=== PATIENT | female | born 1960 | race Caucasian/White ===

== ENCOUNTER → 2017-09-23 | Outpatient (CLI) | payer BC ==
[2016-03-06 17:11] VITALS: BP 137/69
--- NOTE | 2017-09-24 09:48 | MG ---
HISTORY: SCREENING Comparison: None FINDINGS: Bilateral CC and MLO projections of the right and left breast were obtained. Heterogeneously dense f ibroglandular tissue is seen to be present. No suspicious architectural distortion, mass or clustere d microcalcifications can be observed to suggest malignancy. No skin thickening or nipple retraction is appreciated. No pathological lymphadenopathy can be identified. Benign-appearing calcifications are noted within the right and left breast. IMPRESSION: NO RADIOGRAPHIC EVIDENCE OF MALIGNANCY. ACR CATEGORY 2 - benign findings. FOLLOW-UP EXAM 1 YEAR. Diagnostic CAD was utilized and reviewed. * 0 (ZERO) - ASSESSMENT INCOMPLETE; ADDITIONAL IMAGING IS NEEDED. * / (ONE) - NEGATIVE. * 2/II (TWO) - BENIGN FINDINGS. * 3/III (THREE) - PROBABLY BENIGN FINDING; SHORT INTERVAL FOLLOW-UP SUGGESTED. * 4/IV (FOUR) - SUSPICIOUS ABNORMALITY; BIOPSY SHOULD BE CONSIDERED. * 5/V - HIGHLY SUSPICIOUS OF MALIGNANCY; BIOPSY SHOULD BE PERFORMED. A NEGATIVE X-RAY REPORT SHOULD NOT DELAY BIOPSY IF A DOMINANT OR CLINICALLY SUSPICIOUS MASS IS PRESENT; 4 TO 8 PERCENT OF CANCERS ARE NOT IDENTIFIED BY X-RAY. A NEGA TIVE REPORT MAY REINFORCE THE CLINICAL IMPRESSION. ADENOSIS AND DENSE BREASTS MAY OBSCURE AN UNDERLY ING NEOPLASM. Reported By:
== END ==
LOC: RAD 09:20
PROVIDERS: ATTEND Obstetrics & Gynecology
DX: Z12.31 Encounter for screening mammogram for malignant neoplasm of breast (principal)
CPT/HCPCS: 77067

== ENCOUNTER 2019-11-10 12:49 | Observation (INO) ==
[2019-11-10 14:48] VITALS: BMI 34.7
[2019-11-10] MEDS ORDERED: TUSSIONEX PENNKINETIC SUSP PO PRN (14:51)
[2019-11-10] MEDS ORDERED: NS 1/2 1000 ML IV 1,000 ML IV ONE (15:05)
[2019-11-10 15:29] LABS: BASOPHILS % (AUTO) 0.8 % (0.2-1.0); EOSINOPHILS # (AUTO) 0.1 x10^3/uL (0.0-0.2); EOSINOPHILS % (AUTO) 1.4 % (0.9-2.9); HEMATOCRIT 43.6 % (36.0-47.0); HEMOGLOBIN 14.7 g/dL (12.0-16.0); LYMPHOCYTES # (AUTO) 1.5 X10^3/uL (1.3-2.9); LYMPHOCYTES % (AUTO) 32.8 % (21.0-51.0); MEAN CORPUSCULAR HEMOGLOBIN 30.1 pg (27.0-34.0); MEAN CORPUSCULAR HGB CONC 33.7 g/dL (33.0-35.0); MEAN CORPUSCULAR VOLUME 89.1 fL (80.0-100.0); MEAN PLATELET VOLUME 7.5 fL (7.4-11.0); MONOCYTES # (AUTO) 0.4 x10^3/uL (0.3-0.8); MONOCYTES % (AUTO) 8.9 % (0.0-13.0); NEUTROPHILS # (AUTO) 2.6 x10^3/uL (2.2-4.8); NEUTROPHILS % (AUTO) 56.1 % (42.0-75.0); PLATELET COUNT 214 X10^3/uL (150.0-450.0); RED CELL DISTRIBUTION WIDTH 13.1 % (11.6-16.5); WHITE BLOOD COUNT 4.6 X10^3/uL (3.6-10.0)
[2019-11-10 15:39] LABS: ALANINE AMINOTRANSFERASE 22 Units/L (12-78); ALBUMIN 3.4 g/dL (3.4-5.0); ALKALINE PHOSPHATASE 82 Units/L (46-116); ASPARTATE AMINO TRANSFERASE 30 Units/L (15-37); BLOOD UREA NITROGEN 12 mg/dL (7-18); CARBON DIOXIDE 28.2 mmol/L (21-32); CHLORIDE 101 mmol/L (98-107); CREATININE 0.99 mg/dL (0.55-1.02); SODIUM 139 mmol/L (136-145); TOTAL PROTEIN 7.5 g/dL (6.4-8.2); eGFR NON BLACK RACES > 60 (>60)
[2019-11-10] MEDS: ROBITUSSIN DM PO SCH ×3 (15:39→20:30)
[2019-11-10] MEDS: VSL#3 PO SCH (15:39)
[2019-11-10] MEDS: LEVAQUIN PREMIX IV 750 MG 750 MG/150 ML BAG IV SCH (15:39)
[2019-11-10] MEDS ORDERED: MAGNESIUM SULFATE 1 GRAM/100 mL PREMIX 1 GM/100 ML BAG IV PRN (15:40)
[2019-11-10] MEDS ORDERED: KLOR-CON PO PRN (15:40)
[2019-11-10] MEDS ORDERED: MICRO K EXTEN CAP 10 MEQ PO PRN (15:40)
[2019-11-10] MEDS ORDERED: POTASSIUM CHL 60 MEQ/NS 0.45% 500 ML IV PRN (15:40)
[2019-11-10] MEDS ORDERED: POTASSIUM CHL 40 MEQ/NS 0.45% 500 ML IV PRN (15:40)
[2019-11-10] MEDS ORDERED: K-RIDER 10 MEQ/NS 100 ML 10 MEQ/100 ML BAG IV PRN (15:40)
[2019-11-10] MEDS: NS 1/2 1000 ML IV 1,000 ML IV SCH (15:40)
[2019-11-10] MEDS: DUONEB 0.5 MG/3 MG (3 mL) NEB SCH ×2 (16:30→21:15)
[2019-11-10] MEDS ORDERED: DUONEB 0.5 MG/3 MG (3 mL) NEB SCH (17:00)
--- NOTE | 2019-11-10 17:01 | RAD ---
HISTORYCOUGH/FEVER X 3 DAYS, FLU VS PNASTUDYCHEST, PA/LAT ADULTCOMPARISONFINDINGSThe trachea is midline. The cardiac silhouette is unremarkable . The lungs are clear without focal infiltrate or effusion. The bony thorax is unremarkable.IMPRESSIONNo acute cardiopulmonary disease.Electronically signed by: SAMEER HOLLOWAY (Nov 10, 2019 16:59:51)
[2019-11-10] MEDS: SOLU-Medrol 40 MG VIAL IVP SCH ×2 (17:11→21:47)
[2019-11-10] MEDS: TYLENOL 325 MG TAB PO PRN (17:12)
[2019-11-10] MEDS: K-DUR TAB 20 MEQ PO PRN (17:14)
[2019-11-10] MEDS: FORTAZ or TAZICEF VIAL INJ 1 G in NS 100 ML IV + SPIKE MINIBAG* 100 ML IV SCH ×2 (17:15→22:15)
[2019-11-11] MEDS: DUONEB 0.5 MG/3 MG (3 mL) NEB SCH ×2 (00:50→05:25)
[2019-11-11] MEDS ORDERED: NS 1/2 1000 ML IV 1,000 ML IV ONE (05:19)
[2019-11-11 06:24] LABS: BASOPHILS % (AUTO) 0.1 % (0.2-1.0); HEMOGLOBIN 13.8 g/dL (12.0-16.0); LYMPHOCYTES # (AUTO) 0.7 X10^3/uL (1.3-2.9); LYMPHOCYTES % (AUTO) 24.1 % (21.0-51.0); MEAN CORPUSCULAR HEMOGLOBIN 30.3 pg (27.0-34.0); MEAN CORPUSCULAR HGB CONC 34.4 g/dL (33.0-35.0); MEAN PLATELET VOLUME 7.5 fL (7.4-11.0); MONOCYTES # (AUTO) 0.1 x10^3/uL (0.3-0.8); MONOCYTES % (AUTO) 4.1 % (0.0-13.0); NEUTROPHILS % (AUTO) 71.7 % (42.0-75.0); PLATELET COUNT 224 X10^3/uL (150.0-450.0); RED BLOOD COUNT 4.55 X10^6/uL (3.5-5.4); WHITE BLOOD COUNT 2.8 X10^3/uL (3.6-10.0)
[2019-11-11] MEDS: SOLU-Medrol 40 MG VIAL IVP SCH ×3 (06:28→21:00)
[2019-11-11] MEDS: FORTAZ or TAZICEF VIAL INJ 1 G in NS 100 ML IV + SPIKE MINIBAG* 100 ML IV SCH ×3 (06:28→21:00)
[2019-11-11] MEDS: NS 1/2 1000 ML IV 1,000 ML IV SCH ×2 (06:29→20:57)
--- NOTE | 2019-11-11 06:38 | RAD ---
HISTORYSOBSTUDYPortable AP chestCOMPARISONMarch 2019FINDINGSThe lungs remain clear. There is mild cephalization of pulmonary venous flow. The heart size is prominent. The mediastinum is unremarkable. No bony abnormality is demonstrated.IMPRESSIONMinimal vascular congestionElectronically signed by: ZENIA SALINAS (Nov 11, 2019 06:37:03)
[2019-11-11 06:44] LABS: ALANINE AMINOTRANSFERASE 23 Units/L (12-78); ALBUMIN 3.2 g/dL (3.4-5.0); ALKALINE PHOSPHATASE 71 Units/L (46-116); ASPARTATE AMINO TRANSFERASE 25 Units/L (15-37); BLOOD UREA NITROGEN 8 mg/dL (7-18); CALCIUM 8.7 mg/dL (8.5-10.1); CARBON DIOXIDE 20.6 mmol/L (21-32); CHLORIDE 99 mmol/L (98-107); COR CA(FOR HYPOALB) 9.3 mg/dL (8.5-10.1); COR NA(FOR HYPERGLY) 138 mmol/L (136-145); CREATININE 1.03 mg/dL (0.55-1.02); SODIUM 136 mmol/L (136-145); TOTAL PROTEIN 7.3 g/dL (6.4-8.2); eGFR NON BLACK RACES 58 (>60)
[2019-11-11] MEDS: LEVAQUIN PREMIX IV 750 MG 750 MG/150 ML BAG IV SCH (08:57)
[2019-11-11] MEDS: LOVENOX INJ 40 MG SYR SC SCH (08:57)
[2019-11-11] MEDS: ROBITUSSIN DM PO SCH ×4 (08:58→21:00)
[2019-11-11] MEDS: TAMIFLU PO SCH ×2 (08:58→21:00)
[2019-11-11] MEDS: VSL#3 PO SCH (08:58)
[2019-11-11] MEDS: POTASSIUM CHLORIDE LIQ 20 MEQ UDC PO PRN (09:11)
[2019-11-11] MEDS: K-DUR TAB 20 MEQ PO PRN (14:12)
[2019-11-11] MEDS: XOPENEX 1.25 MG/3 ML NEBULE NEB SCH ×2 (15:00→20:20)
--- NOTE | 2019-11-11 17:30 | DR.UPDATE ---
H&P Update History and Physical Update: History and Physical reviewed and patient examined. Changes noted: Yes with the following: WAS SEEN IN THE OFFICE FOR COMPLAINT OF BODY ACHES, FEVER, DIARRHEA, COUGH, AND SHORTNESS OF BREATH. COUGH AND SHORTNESS OF BREATH STARTED TWO WEEKS PRIOR. BODY ACHES AND FEVER STARTED FOUR DAYS PRIOR. SHE HAS TAKEN CEFDINIR 300MG PO BID X 10 DAYS AND A MEDROL DOSEPACK WITHOUT IMPROVEMENT IN SYMPTOMS. SHE ALSO STARTED TAKING TAMIFLU 75MG PO BID TWO DAYS PRIOR TO ARRIVAL. SHE WAS ADMITTED FOR FURTHER EVALUATION AND TREATMENT OF BRONCHOPNEUMONIA AND INFLUENZA. ON ADMISSION, VITALS WERE 98.9-93-20-98%-159/76. LABS WERE OBTAINED. ABNORMAL LAB VALUES INCLUDE THE FOLLOWING: POTASSIUM 3.1, INFLUENZA A POSITIVE. BLOOD AND SPUTUM CULTURES WERE SET UP. A CHEST XRAY WAS OBTAINED AND REVEALED: NO ACUTE CARDIOPULMONARY DISEASE. SHE WAS STARTED ON IV FORTAZ, IV LEVAQUIN, RESPIRATORY TX, THE POTASSIUM AND MAGNESIUM PROTOCOLS, TAMIFLU 75MG PO DAILY, 1/2NS AT 75 ML/HR, AND HOME MEDICATIONS WERE RESUMED. WE WILL CONTINUE WITH CURRENT PLAN OF CARE TODAY. OTHERWISE, WE WILL FOLLOW UP WITH AM LABS AND CHEST XRAY AND CONTINUE TO MONITOR. Prescription drug monitoring program results: PDMP reviewed and no concerns identified H&P Reviewed: Yes Patient was examined?: Yes
[2019-11-11] MEDS: AMBIEN PO PRN (22:57)
[2019-11-12] MEDS ORDERED: NS 1/2 1000 ML IV 1,000 ML IV ONE ×2 (03:22→20:01)
[2019-11-12] MEDS: NS 1/2 1000 ML IV 1,000 ML IV SCH ×3 (03:26→22:16)
[2019-11-12] MEDS: FORTAZ or TAZICEF VIAL INJ 1 G in NS 100 ML IV + SPIKE MINIBAG* 100 ML IV SCH ×3 (05:37→21:24)
[2019-11-12] MEDS: SOLU-Medrol 40 MG VIAL IVP SCH ×3 (05:38→21:23)
[2019-11-12] MEDS: XOPENEX 1.25 MG/3 ML NEBULE NEB SCH ×3 (05:40→20:35)
--- NOTE | 2019-11-12 06:10 | RAD ---
HISTORYSOB pneumoniaSTUDYAP [id number]/2020FINDINGSContinued normal heart size with essentially clear lungs and pleural spaces.IMPRESSIONNo interval change or acute chest abnormality demonstrated.Electronically signed by : LAURI GOLDBERG (Nov 12, 2019 06:09:51)
[2019-11-12 06:17] LABS: BASOPHILS % (AUTO) 0.1 % (0.2-1.0); HEMATOCRIT 35.7 % (36.0-47.0); HEMOGLOBIN 12.2 g/dL (12.0-16.0); LYMPHOCYTES % (AUTO) 10.1 % (21.0-51.0); MEAN CORPUSCULAR HEMOGLOBIN 30.8 pg (27.0-34.0); MEAN CORPUSCULAR HGB CONC 34.2 g/dL (33.0-35.0); MEAN CORPUSCULAR VOLUME 89.9 fL (80.0-100.0); MEAN PLATELET VOLUME 8.1 fL (7.4-11.0); MONOCYTES # (AUTO) 0.2 x10^3/uL (0.3-0.8); MONOCYTES % (AUTO) 2.2 % (0.0-13.0); NEUTROPHILS # (AUTO) 8.5 x10^3/uL (2.2-4.8); NEUTROPHILS % (AUTO) 87.6 % (42.0-75.0); PLATELET COUNT 222 X10^3/uL (150.0-450.0); RED BLOOD COUNT 3.97 X10^6/uL (3.5-5.4); WHITE BLOOD COUNT 9.7 X10^3/uL (3.6-10.0)
[2019-11-12 06:38] LABS: ALANINE AMINOTRANSFERASE 23 Units/L (12-78); ALBUMIN 2.8 g/dL (3.4-5.0); ALKALINE PHOSPHATASE 55 Units/L (46-116); ASPARTATE AMINO TRANSFERASE 24 Units/L (15-37); BLOOD UREA NITROGEN 8 mg/dL (7-18); CALCIUM 8.8 mg/dL (8.5-10.1); CARBON DIOXIDE 26.3 mmol/L (21-32); CHLORIDE 103 mmol/L (98-107); COR CA(FOR HYPOALB) 9.8 mg/dL (8.5-10.1); COR NA(FOR HYPERGLY) 141 mmol/L (136-145); CREATININE 0.87 mg/dL (0.55-1.02); SODIUM 139 mmol/L (136-145); TOTAL PROTEIN 6.1 g/dL (6.4-8.2); eGFR NON BLACK RACES > 60 (>60)
[2019-11-12] MEDS: TAMIFLU PO SCH ×2 (09:39→21:24)
[2019-11-12] MEDS: ROBITUSSIN DM PO SCH ×4 (09:39→21:23)
[2019-11-12] MEDS: LEVAQUIN PREMIX IV 750 MG 750 MG/150 ML BAG IV SCH (09:39)
[2019-11-12] MEDS: LOVENOX INJ 40 MG SYR SC SCH (09:39)
[2019-11-12] MEDS: VSL#3 PO SCH (09:40)
--- NOTE | 2019-11-12 11:12 | PCM.PROG ---
Progress Note Progress Note for Day of Date of Exam: 11/12/19 Subjective Subjective: Patient seen at bedside, no acute events overnight. She continues to feel congested and SOB. She states she continues to have dry coughing spells. She was admitted for bronchopneumonia and flu. She is currently on Fortaz, Levaquin and Tamiflu. She is also receiving solumedrol and duonebs. She denies fever or chills, denies N/V/D or abdominal pain. Her blood sugars were noted to be elevated, patient reports no hx of diabetes but she states she has been feeling tired with increased urination and thirst. Will check A1C. Continue antibiotics, add pulmicort BID. Follow cultures. Past Medical Family Social History Past Med/Fam/Surg Hx: No changes since H&P Allergies: Allergies No Known Drug Allergies Allergy (Verified 11/10/19 14:16) Review of Systems ROS: No change since H&P Vital Signs and I&O's Vital Signs: Temperature 98.4 F Pulse Rate [Right Brachial] 104 Pulse Rate 86 Respiratory Rate 18 Blood Pressure [Left Arm] 108/54 Blood Pressure [Right Arm] 135/73 Blood Pressure 134/64 O2 Sat by Pulse Oximetry 96 Intake and Output: Intake & Output 11/09/19 11/10/19 11/11/19 11/12/19 23:59 23:59 23:59 23:59 Intake Total 1730 / 1730 2430 / 2430 50 / 50 Output Total Balance 1729 / 1729 2430 / 2430 50 / 50 Physical Exam Oriented: Normal Eyes: Normal Nose: Normal Respiratory: Wheezes and Rhonchi Cardiovascular: Normal Auscultation: Bowel Sounds: Normal Palpation: Normal Tenderness: Normal Skin: Normal Musculoskeletal: Normal Psychiatric: Normal Mood Description: Calm and Angry Speech Pattern: Clear and Appropriate Laboratory and Diagnostics Result Diagrams: 11/12/19 05:05 11/12/19 05:05 Labs: 11/10/19 15:15 Blood Blood Culture - Preliminary 11/10/19 15:09 Blood Blood Culture - Preliminary 11/10/19 14:20 Sputum - Expectorated Sputum Sputum Culture - Final 11/10/19 14:20 Sputum - Expectorated Sputum - Final Laboratory WBC 9.7 X10^3/uL (3.6-10.0) 11/12/19 05:05 RBC 3.97 X10^6/uL (3.5-5.4) 11/12/19 05:05 Hgb 12.2 g/dL (12.0-16.0) 11/12/19 05:05 Hct 35.7 % (36.0-47.0) L 11/12/19 05:05 MCV 89.9 fL (80.0-100.0) 11/12/19 05:05 MCH 30.8 pg (27.0-34.0) 11/12/19 05:05 MCHC 34.2 g/dL (33.0-35.0) 11/12/19 05:05 RDW 13.0 % (11.6-16.5) 11/12/19 05:05 Plt Count 222 X10^3/uL (150.0-450.0) 11/12/19 05:05 MPV 8.1 fL (7.4-11.0) 11/12/19 05:05 Neut % (Auto) 87.6 % (42.0-75.0) H 11/12/19 05:05 Lymph % (Auto) 10.1 % (21.0-51.0) L 11/12/19 05:05 [place] % (Auto) 2.2 % (0.0-13.0) 11/12/19 05:05 Eos % (Auto) 0.0 % (0.9-2.9) L 11/12/19 05:05 Baso % (Auto) 0.1 % (0.2-1.0) L 11/12/19 05:05 Neut # (Auto) 8.5 x10^3/uL (2.2-4.8) H 11/12/19 05:05 Lymph # (Auto) 1.0 X10^3/uL (1.3-2.9) L 11/12/19 05:05 [place] # (Auto) 0.2 x10^3/uL (0.3-0.8) L 11/12/19 05:05 Eos # (Auto) 0.0 x10^3/uL (0.0-0.2) 11/12/19 05:05 Baso # (Auto) 0.0 X10^3/uL (0.0-0.1) 11/12/19 05:05 Absolute Nucleated RBC 0.0 /100WBC 11/12/19 05:05 Sodium 139 mmol/L (136-145) 11/12/19 05:05 Corrected Sodium 141 mmol/L (136-145) 11/12/19 05:05 Potassium 3.4 mmol/L (3.5-5.1) L 11/12/19 05:05 Chloride 103 mmol/L (98-107) 11/12/19 05:05 Carbon Dioxide 26.3 mmol/L (21-32) 11/12/19 05:05 BUN 8 mg/dL (7-18) 11/12/19 05:05 Creatinine 0.87 mg/dL (0.55-1.02) 11/12/19 05:05 Est GFR (MDRD) Af Amer > 60 (>60) 11/12/19 05:05 Est GFR (MDRD) Non-Af > 60 (>60) 11/12/19 05:05 Glucose 190 mg/dL (65-99) H 11/12/19 05:05 Hemoglobin A1c 5.6 % 11/12/19 05:05 Calcium 8.8 mg/dL (8.5-10.1) 11/12/19 05:05 Corrected Calcium 9.8 mg/dL (8.5-10.1) 11/12/19 05:05 Magnesium 2.1 mg/dL (1.7-2.9) 11/12/19 05:05 Total Bilirubin 0.30 mg/dL (0.2-1.0) 11/12/19 05:05 AST 24 Units/L (15-37) 11/12/19 05:05 ALT 23 Units/L (12-78) 11/12/19 05:05 Alkaline Phosphatase 55 Units/L (46-116) 11/12/19 05:05 Total Protein 6.1 g/dL (6.4-8.2) L 11/12/19 05:05 Albumin 2.8 g/dL (3.4-5.0) L 11/12/19 05:05 Globulin 3.3 g/dL (2.5-4.5) 11/12/19 05:05 Albumin/Globulin Ratio 0.8 Ratio (1.1-2.1) L 11/12/19 05:05 Influenza Type A (PCR) Positive (NEGATIVE) A 11/10/19 16:00 Influenza Type B (PCR) Negative (NEGATIVE) 11/10/19 16:00 Plan (1) Essential hypertension: Status: Chronic (2) GERD (gastroesophageal reflux disease): Status: Chronic Qualifiers: Esophagitis presence: esophagitis presence not specified Qualified Code(s): K21.9 - Gastro-esophageal reflux disease without esophagitis (3) Bronchopneumonia: Status: Acute (4) Influenza: Status: Acute (5) Hypokalemia: Status: Acute
[2019-11-12] MEDS ORDERED: PEPCID 20 MG IV PREMIX* 20 MG/50 ML BAG IV ONE (11:26)
[2019-11-12] MEDS: PEPCID 20 MG IV PREMIX* 20 MG/50 ML BAG IV SCH ×2 (11:54→21:29)
[2019-11-12] MEDS: PULMICORT NEB TX 0.5 MG NEB SCH ×2 (14:08→20:35)
[2019-11-12] MEDS: POTASSIUM CHLORIDE LIQ 20 MEQ UDC PO PRN (17:10)
[2019-11-12] MEDS: AMBIEN PO PRN (21:24)
[2019-11-13] MEDS: SOLU-Medrol 40 MG VIAL IVP SCH ×2 (05:06→14:34)
[2019-11-13] MEDS: FORTAZ or TAZICEF VIAL INJ 1 G in NS 100 ML IV + SPIKE MINIBAG* 100 ML IV SCH ×3 (05:06→21:11)
[2019-11-13] MEDS: XOPENEX 1.25 MG/3 ML NEBULE NEB SCH ×3 (05:45→20:30)
[2019-11-13 06:17] LABS: BASOPHILS % (AUTO) 0.1 % (0.2-1.0); HEMATOCRIT 33.5 % (36.0-47.0); HEMOGLOBIN 11.7 g/dL (12.0-16.0); LYMPHOCYTES % (AUTO) 10.9 % (21.0-51.0); MEAN CORPUSCULAR HEMOGLOBIN 30.8 pg (27.0-34.0); MEAN CORPUSCULAR HGB CONC 34.9 g/dL (33.0-35.0); MEAN CORPUSCULAR VOLUME 88.4 fL (80.0-100.0); MEAN PLATELET VOLUME 7.8 fL (7.4-11.0); MONOCYTES # (AUTO) 0.2 x10^3/uL (0.3-0.8); MONOCYTES % (AUTO) 2.4 % (0.0-13.0); NEUTROPHILS # (AUTO) 8.4 x10^3/uL (2.2-4.8); NEUTROPHILS % (AUTO) 86.6 % (42.0-75.0); PLATELET COUNT 197 X10^3/uL (150.0-450.0); RED BLOOD COUNT 3.79 X10^6/uL (3.5-5.4); RED CELL DISTRIBUTION WIDTH 13.5 % (11.6-16.5); WHITE BLOOD COUNT 9.7 X10^3/uL (3.6-10.0)
[2019-11-13 06:28] LABS: ALANINE AMINOTRANSFERASE 21 Units/L (12-78); ALBUMIN 2.7 g/dL (3.4-5.0); ALKALINE PHOSPHATASE 47 Units/L (46-116); ASPARTATE AMINO TRANSFERASE 22 Units/L (15-37); BLOOD UREA NITROGEN 7 mg/dL (7-18); CALCIUM 8.6 mg/dL (8.5-10.1); CARBON DIOXIDE 28.6 mmol/L (21-32); CHLORIDE 106 mmol/L (98-107); COR CA(FOR HYPOALB) 9.6 mg/dL (8.5-10.1); COR NA(FOR HYPERGLY) 143 mmol/L (136-145); CREATININE 0.74 mg/dL (0.55-1.02); SODIUM 141 mmol/L (136-145); TOTAL PROTEIN 5.9 g/dL (6.4-8.2); eGFR NON BLACK RACES > 60 (>60)
--- NOTE | 2019-11-13 06:54 | RAD ---
HISTORYSOBSTUDYCHEST, 1 [id number]/07/2020FINDINGSThe trachea is midline. The cardiac silhouette is unremarkable . The lungs are clear without focal infiltrate or effusion. The bony thorax is unremarkable.[ ]IMPRESSIONNo acute cardiopulmonary abnormality or change from prior exam.Electronically signed by: AYANA DOUGLASS (Nov 13, 2019 06:53:34)
[2019-11-13] MEDS: PULMICORT NEB TX 0.5 MG NEB SCH ×2 (08:46→20:30)
[2019-11-13] MEDS: LEVAQUIN PREMIX IV 750 MG 750 MG/150 ML BAG IV SCH (09:47)
[2019-11-13] MEDS: PEPCID 20 MG IV PREMIX* 20 MG/50 ML BAG IV SCH ×2 (09:48→20:17)
[2019-11-13] MEDS: TAMIFLU PO SCH ×2 (09:52→20:19)
[2019-11-13] MEDS: LOVENOX INJ 40 MG SYR SC SCH (09:52)
[2019-11-13] MEDS: ROBITUSSIN DM PO SCH ×4 (09:52→20:19)
[2019-11-13] MEDS: VSL#3 PO SCH (09:53)
--- NOTE | 2019-11-13 11:59 | PCM.PROG ---
Progress Note Progress Note for Day of Date of Exam: 11/13/19 Subjective Subjective: Patient seen at bedside, no acute events overnight. She states her cough and breathing is slightly better. She has been ambulated to the bathroom. She was admitted for bronchopneumonia and flu. She is currently on Fortaz, Levaquin and Tamiflu. She is also receiving solumedrol and duonebs. She denies fever or chills, denies N/V/D or abdominal pain. CXR negative for acute process. Continue antibiotics, duonebs and pulmicort BID. Follow cultures. Past Medical Family Social History Past Med/Fam/Surg Hx: No changes since H&P Allergies: Allergies No Known Drug Allergies Allergy (Verified 11/10/19 14:16) Review of Systems ROS: No change since H&P Vital Signs and I&O's Vital Signs: Temperature 98.1 F Pulse Rate [Right Brachial] 90 Pulse Rate 101 Respiratory Rate 20 Blood Pressure [Left Arm] 135/66 Blood Pressure [Right Arm] 135/73 Blood Pressure 134/64 O2 Sat by Pulse Oximetry 96 Intake and Output: Intake & Output 11/10/19 11/11/19 11/12/19 11/14/19 23:59 23:59 23:59 00:59 Intake Total 1730 / 1730 2430 / 2430 2430 / 2430 960 / 960 Output Total Balance 1729 / 1729 2430 / 2430 2430 / 2430 960 / 960 Physical Exam Oriented: Normal Eyes: Normal Nose: Normal Respiratory: Wheezes and Rhonchi Cardiovascular: Normal Auscultation: Bowel Sounds: Normal Tenderness: Normal Skin: Normal Musculoskeletal: Normal Psychiatric: Normal Mood Description: Calm and Angry Speech Pattern: Clear and Appropriate Laboratory and Diagnostics Result Diagrams: 11/13/19 05:22 11/13/19 05:22 Labs: 11/10/19 15:15 Blood Blood Culture - Preliminary 11/10/19 15:09 Blood Blood Culture - Preliminary 11/10/19 14:20 Sputum - Expectorated Sputum Sputum Culture - Final 11/10/19 14:20 Sputum - Expectorated Sputum - Final Laboratory WBC 9.7 X10^3/uL (3.6-10.0) 11/13/19 05:22 RBC 3.79 X10^6/uL (3.5-5.4) 11/13/19 05:22 Hgb 11.7 g/dL (12.0-16.0) L 11/13/19 05:22 Hct 33.5 % (36.0-47.0) L 11/13/19 05:22 MCV 88.4 fL (80.0-100.0) 11/13/19 05:22 MCH 30.8 pg (27.0-34.0) 11/13/19 05:22 MCHC 34.9 g/dL (33.0-35.0) 11/13/19 05:22 RDW 13.5 % (11.6-16.5) 11/13/19 05:22 Plt Count 197 X10^3/uL (150.0-450.0) 11/13/19 05:22 MPV 7.8 fL (7.4-11.0) 11/13/19 05:22 Neut % (Auto) 86.6 % (42.0-75.0) H 11/13/19 05:22 Lymph % (Auto) 10.9 % (21.0-51.0) L 11/13/19 05:22 [place] % (Auto) 2.4 % (0.0-13.0) 11/13/19 05:22 Eos % (Auto) 0.0 % (0.9-2.9) L 11/13/19 05:22 Baso % (Auto) 0.1 % (0.2-1.0) L 11/13/19 05:22 Neut # (Auto) 8.4 x10^3/uL (2.2-4.8) H 11/13/19 05:22 Lymph # (Auto) 1.0 X10^3/uL (1.3-2.9) L 11/13/19 05:22 [place] # (Auto) 0.2 x10^3/uL (0.3-0.8) L 11/13/19 05:22 Eos # (Auto) 0.0 x10^3/uL (0.0-0.2) 11/13/19 05:22 Baso # (Auto) 0.0 X10^3/uL (0.0-0.1) 11/13/19 05:22 Absolute Nucleated RBC 0.0 /100WBC 11/13/19 05:22 Sodium 141 mmol/L (136-145) 11/13/19 05:22 Corrected Sodium 143 mmol/L (136-145) 11/13/19 05:22 Potassium 3.7 mmol/L (3.5-5.1) 11/13/19 05:22 Chloride 106 mmol/L (98-107) 11/13/19 05:22 Carbon Dioxide 28.6 mmol/L (21-32) 11/13/19 05:22 BUN 7 mg/dL (7-18) 11/13/19 05:22 Creatinine 0.74 mg/dL (0.55-1.02) 11/13/19 05:22 Est GFR (MDRD) Af Amer > 60 (>60) 11/13/19 05:22 Est GFR (MDRD) Non-Af > 60 (>60) 11/13/19 05:22 Glucose 167 mg/dL (65-99) H 11/13/19 05:22 Hemoglobin A1c 5.6 % 11/12/19 05:05 Calcium 8.6 mg/dL (8.5-10.1) 11/13/19 05:22 Corrected Calcium 9.6 mg/dL (8.5-10.1) 11/13/19 05:22 Magnesium 2.1 mg/dL (1.7-2.9) 11/12/19 05:05 Total Bilirubin 0.30 mg/dL (0.2-1.0) 11/13/19 05:22 AST 22 Units/L (15-37) 11/13/19 05:22 ALT 21 Units/L (12-78) 11/13/19 05:22 Alkaline Phosphatase 47 Units/L (46-116) 11/13/19 05:22 Total Protein 5.9 g/dL (6.4-8.2) L 11/13/19 05:22 Albumin 2.7 g/dL (3.4-5.0) L 11/13/19 05:22 Globulin 3.2 g/dL (2.5-4.5) 11/13/19 05:22 Albumin/Globulin Ratio 0.8 Ratio (1.1-2.1) L 11/13/19 05:22 Influenza Type A (PCR) Positive (NEGATIVE) A 11/10/19 16:00 Influenza Type B (PCR) Negative (NEGATIVE) 11/10/19 16:00 Plan (1) Essential hypertension: Status: Chronic (2) GERD (gastroesophageal reflux disease): Status: Chronic Qualifiers: Esophagitis presence: esophagitis presence not specified Qualified Code(s): K21.9 - Gastro-esophageal reflux disease without esophagitis (3) Bronchopneumonia: Status: Acute (4) Influenza: Status: Acute (5) Hypokalemia: Status: Acute
[2019-11-13] MEDS: TYLENOL 325 MG TAB PO PRN (14:34)
[2019-11-13] MEDS: NS 1/2 1000 ML IV 1,000 ML IV SCH ×2 (15:12→16:50)
[2019-11-13] MEDS ORDERED: NS 1/2 1000 ML IV 1,000 ML IV ONE (16:43)
[2019-11-13] MEDS: AMBIEN PO PRN (20:19)
[2019-11-14] MEDS ORDERED: NS 1/2 1000 ML IV 1,000 ML IV ONE (04:01)
[2019-11-14] MEDS: NS 1/2 1000 ML IV 1,000 ML IV SCH (04:14)
[2019-11-14] MEDS: FORTAZ or TAZICEF VIAL INJ 1 G in NS 100 ML IV + SPIKE MINIBAG* 100 ML IV SCH ×2 (05:07→14:04)
[2019-11-14 06:24] LABS: BASOPHILS % (AUTO) 0 % (0.2-1.0); HEMATOCRIT 32.4 % (36.0-47.0); HEMOGLOBIN 11.1 g/dL (12.0-16.0); LYMPHOCYTES # (AUTO) 1.2 X10^3/uL (1.3-2.9); LYMPHOCYTES % (AUTO) 16.4 % (21.0-51.0); MEAN CORPUSCULAR HEMOGLOBIN 30.8 pg (27.0-34.0); MEAN CORPUSCULAR HGB CONC 34.1 g/dL (33.0-35.0); MEAN CORPUSCULAR VOLUME 90.1 fL (80.0-100.0); MEAN PLATELET VOLUME 7.8 fL (7.4-11.0); MONOCYTES # (AUTO) 0.3 x10^3/uL (0.3-0.8); MONOCYTES % (AUTO) 4.1 % (0.0-13.0); NEUTROPHILS # (AUTO) 5.6 x10^3/uL (2.2-4.8); NEUTROPHILS % (AUTO) 79.5 % (42.0-75.0); PLATELET COUNT 180 X10^3/uL (150.0-450.0); RED CELL DISTRIBUTION WIDTH 13.3 % (11.6-16.5); WHITE BLOOD COUNT 7.1 X10^3/uL (3.6-10.0)
[2019-11-14 06:33] LABS: ALANINE AMINOTRANSFERASE 23 Units/L (12-78); ALBUMIN 2.5 g/dL (3.4-5.0); ALKALINE PHOSPHATASE 43 Units/L (46-116); ASPARTATE AMINO TRANSFERASE 18 Units/L (15-37); BLOOD UREA NITROGEN 8 mg/dL (7-18); CALCIUM 8.4 mg/dL (8.5-10.1); CARBON DIOXIDE 30.8 mmol/L (21-32); CHLORIDE 106 mmol/L (98-107); COR CA(FOR HYPOALB) 9.6 mg/dL (8.5-10.1); COR NA(FOR HYPERGLY) 143 mmol/L (136-145); CREATININE 0.71 mg/dL (0.55-1.02); SODIUM 142 mmol/L (136-145); TOTAL PROTEIN 5.5 g/dL (6.4-8.2); eGFR NON BLACK RACES > 60 (>60)
[2019-11-14] MEDS: XOPENEX 1.25 MG/3 ML NEBULE NEB SCH ×2 (06:34→13:26)
[2019-11-14] MEDS: PULMICORT NEB TX 0.5 MG NEB SCH (09:09)
[2019-11-14] MEDS: ROBITUSSIN DM PO SCH ×2 (09:33→14:03)
[2019-11-14] MEDS: LEVAQUIN PREMIX IV 750 MG 750 MG/150 ML BAG IV SCH (09:33)
[2019-11-14] MEDS: VSL#3 PO SCH (09:33)
[2019-11-14] MEDS: LOVENOX INJ 40 MG SYR SC SCH (09:33)
[2019-11-14] MEDS: TAMIFLU PO SCH (09:33)
[2019-11-14 09:35] VITALS: BP 121/56
[2019-11-14] MEDS ORDERED: SOLU-Medrol 125 MG VIAL IVP ONE (09:55)
[2019-11-14] MEDS: PEPCID 20 MG IV PREMIX* 20 MG/50 ML BAG IV SCH (10:20)
== END 2019-11-14 14:40 | disposition home or self-care (01) ==
LOC: MED/SURG
PROVIDERS: ADMIT Internal Medicine; ATTEND Internal Medicine
DX: R19.7 Diarrhea, unspecified; J18.0 Bronchopneumonia, unspecified organism; R06.02 Shortness of breath; R73.09 Other abnormal glucose; J10.08 Influenza due to other identified influenza virus with other specified pneumonia; K21.9 Gastro-esophageal reflux disease without esophagitis; I10 Essential (primary) hypertension
CPT/HCPCS: 36415; 71010; 71020; 71045; 71046; 80053; 83036; 83735; 84132; 85025; 87040; 87070; 87205; 87502; 94640; 94760; 96360; 96361; 96372; 96374; A4222; G0378; G9035; J0713; J1650; J1956; J2920; J2930; J3490; J7050; J7620; J7626; S0028